=== PATIENT | female | born 1980 | race Caucasian/White ===

== ENCOUNTER → 2020-12-02 12:33 | Outpatient (CLI) | payer OTHER, SELFPAY ==
[2020-12-02 12:50] LABS: Add Manual Diff / Slide Review NO; Basophils Absolute Auto 0 /uL (0-100); Basophils Percent Auto 0.3 % (0-2); Eosinophils Absolute Auto 0 /uL (0-450); Eosinophils Percent Auto 0.6 % (2-4); Hematocrit 38.5 % (36-46); Hemoglobin 13.2 g/dL (12.0-16.0); Lymphocytes Absolute Auto 1900 /uL (1100-4500); Lymphocytes Percent Auto 27.4 % (25-40); Mean Corpuscular HGB Conc 34.3 % (30-36); Mean Corpuscular Hemoglobin 30.9 PG (26-34); Mean Corpuscular Volume 90.2 fL (80-100); Monocytes Absolute Auto 600 /uL (0-900); Monocytes Percent Auto 8.1 % (3-14); Neutrophils Absolute Auto 4300 /uL (1500-7000); Neutrophils Percent Auto 63.6 % (50-75); Platelet Count 343 X10^3/uL (150-400); Red Blood Cell Count 4.26 X10^6/uL (4.0-5.2); Red Cell Distribution Width 13.2 % (11.6-14.8); White Blood Cell Count 6.8 X10^3/uL (4.5-11.0)
[2020-12-02 16:48] LABS: Urine N gonorrhoeae NOT DETECTED
[2020-12-02 16:51] LABS: Urine Chlamydia NOT DETECTED
[2020-12-02 18:51] LABS: Hepatitis B Surface Antigen NEGATIVE s/c (NEGATIVE); Rubella Antibody IgG 3.7 IU/mL (>15)
[2020-12-02 19:00] LABS: HIV 1 & 2 Ab/Ag 4th Gen Combo NEGATIVE (NEGATIVE); Hep C Virus Ab w/Reflex Quant NEGATIVE s/c (NEGATIVE)
[2020-12-03 07:36] LABS: RPR Screen Non Reactive (Non Reactive)
[2020-12-03 08:16] LABS: Varicella IgG Antibody 290 index (Immune >165)
== END ==
PROVIDERS: PCP Family Medicine; Referring Provider Obstetrics & Gynecology; Visit Provider Obstetrics & Gynecology
DX: Z34.81 Encounter for supervision of other normal pregnancy, first trimester (principal); Z11.3 Encounter for screening for infections with a predominantly sexual mode of transmission; Z3A.09 9 weeks gestation of pregnancy
CPT/HCPCS: 36415; 80055; 86787; 86803; 86850; 86900; 86901; 87389; 87491; 87591

== ENCOUNTER → 2021-01-01 08:08 | Outpatient (CLI) | payer OTHER, SELFPAY | PROVIDERS: PCP Family Medicine; Referring Provider Obstetrics & Gynecology; Visit Provider Obstetrics & Gynecology | DX: O09.511 Supervision of elderly primigravida, first trimester (principal); Z36.0 Encounter for antenatal screening for chromosomal anomalies | CPT/HCPCS: 81420; 87086 ==

== ENCOUNTER → 2021-01-27 09:08 | Outpatient (CLI) | payer OTHER, SELFPAY ==
[2021-01-29 20:39] LABS: AFP Value 28.7 ng/mL (.); Gest Age on Col Date 16.9 weeks (.); Insulin Dep Diabetes No (.); OSBR Risk 1IN 10000 (.); Results Report (.); Test Results *Screen Negative* (.)
== END ==
PROVIDERS: PCP Family Medicine; Referring Provider Obstetrics & Gynecology; Visit Provider Obstetrics & Gynecology
DX: Z34.82 Encounter for supervision of other normal pregnancy, second trimester (principal); Z3A.16 16 weeks gestation of pregnancy
CPT/HCPCS: 36415; 82105

== ENCOUNTER → 2021-02-24 08:59 | Outpatient (CLI) | payer OTHER, SELFPAY ==
--- NOTE | 2021-02-24 09:00 | DI.US.S_ITS ---
PROCEDURE: US OB >= 14 WEEKS FETUS INDICATIONS: ANATOMY OUTSIDE/PRIOR DATING DATA: Last menstrual period (LMP): 10/01/2020. LMP-based estimated date of delivery (DELMER): 07/08/2021 . First dating scan (date and location): 12/02/2020, physician's office . Estimated date of delivery (DELMER) from first dating scan: 07/08/2021 . TECHNIQUE: Real-time scanning was performed of the fetus, with image documentation and biometric measurements. COMPARISON: [facility], , OB >= 14 WEEKS FETUS, 01/27/2021, 9:01. FINDINGS: General: A single living intrauterine gestation is present. Presentation: Transverse with head to maternal left, then variable. Placenta: Placental position is anterior, low lying, measuring 1.5 cm from the internal os , without previa. Amniotic fluid index: 12.4 cm, normal range is 5-24 cm. heart rate: 135 beats per minute. Maternal cervical canal: 4.8 cm long. Normal lower limit is 2.5 cm. biometrics: Biparietal diameter: 5.01 cm, 20 weeks 1 day Head circumference: 19.17 cm, 21 weeks 3 days Abdominal circumference: 16.65 cm, 21 weeks 4 days Femur length: 3.65 cm, 21 weeks 4 days Estimated gestational age from initial scan: not applicable. Composite gestational age from present scan: 21 weeks 3 days Estimated weight and percentile: 432 g, 81st percentile Measurement variability for biometric dating: +/- 7 days from 14 weeks to 15 weeks 6 days gestation, +/- 10 days from 16 weeks to 21 weeks 6 days gestation, +/- 2 weeks from 22 weeks to 27 weeks 6 days gestation, +/- 3 weeks for 28 weeks gestation or later. weight reference: 4500 g or EFW >90/95% is considered macrosomia or large for gestational age. EFW <10% is small for gestational age. EFW 5% or less is considered intra-uterine growth restriction. Anatomic survey: Neuro: Ventricles are non-dilated at less than 10 mm. Cisterna magna is normal at 3-11 mm. Cerebellum is normal in size and morphology. Nuchal skin fold: Normal at less than 6 mm between 14-21 weeks gestational age. Face: Nose and lips, facial profile are normal. Spine: No evidence for spina bifida. Heart: 4-chambered heart is present, with normal ventricular outflow tracts. Echogenic focus, left ventricle. Diaphragm: Diaphragm is intact. Stomach: Left-sided stomach is present. Kidneys: No hydronephrosis. Normal is less than 5 mm in 2nd trimester, less than 7 mm in 3rd trimester. Cord: 3-vessel cord has orthotopic insertion. Bladder: Normal in size. Extremities: All 4 extremities identified. IMPRESSION: 1. Living 2nd trimester intrauterine . Ultrasound age is 4 days greater than clinical age based on initial ultrasound. 2. Incidental note made of left ventricular echogenic focus. 3. Low lying placenta, 1.5 cm from the os. 4. Otherwise unremarkable anatomy study. Comment: Consider follow-up limited ultrasound in approximately 4 weeks to document resolution of low lying placenta. Dictated by: Homero Robert M.D. on 02/24/2021 at 14:33 Approved by: Homero Robert M.D. on 02/24/2021 at 14:41
== END ==
PROVIDERS: PCP Family Medicine; Referring Provider Obstetrics & Gynecology; Visit Provider Obstetrics & Gynecology
DX: Z34.82 Encounter for supervision of other normal pregnancy, second trimester (principal); Z3A.21 21 weeks gestation of pregnancy
CPT/HCPCS: 76811

== ENCOUNTER 2021-03-20 14:54 | Outpatient (CLI) | payer OTHER, SELFPAY ==
--- NOTE | 2021-03-20 15:14 | DI.US.S_ITS ---
PROCEDURE: US OB TRANSVAGINAL INDICATIONS: CERVICAL LENGTH OUTSIDE/PRIOR DATING DATA: Last menstrual period (LMP): 10/01/2020 LMP-based estimated date of delivery (DELMER): 07/08/2021. First dating scan (date and location): 11/22/2020, Dr. Kohli office. Estimated date of delivery (DELMER) from first dating scan: 07/08/2021 TECHNIQUE: Real-time scanning was performed of the fetus, with image documentation. Endovaginal scanning: Performed for better visualization COMPARISON: [facility], OB >= 14 WEEKS FETUS, 02/24/2021, 9:21. [facility], , US OB >= 14 WEEKS FETUS, 01/27/2021, 9:01. [facility], OB >= 14 WEEKS FETUS, 12/02/2020, 12:17. FINDINGS: A single live intrauterine gestation is present. Presentation: Transverse. Placenta: Placental position is anterior, without previa. The inferior edge of the placenta is seen 2.2 cm from the internal cervical os. Amniotic fluid index: Not measured heart rate: 133 beats per minute. Maternal cervical canal: 4 cm long. Normal lower limit is 2.5 cm. Estimated gestational age from initial scan: 24 weeks 2 days. IMPRESSION: The cervix measures 4 cm in length. Dictated by: Yosef Moore M.D. on 03/20/2021 at 16:10 Approved by: Yosef Moore M.D. on 03/20/2021 at 16:12
--- NOTE | 2021-03-20 16:47 | P.TNLD_ITS ---
Visit Information Visit Information Date of evaluation: 03/20/21 Primary OB Provider: Bernadine Kohli On-call OB Provider: Yamilet Garcia Reason for Evaluation: Yes rule out labor Comments/Additional reasons for admission: This patient is a 40-year-old para 3 at 24 weeks 2 days with a history of 3 term vaginal deliveries, presenting because she has passed 3 tbsp of dark tented cervical mucus. The patient reports that the mucus was brown, and that she has had several weeks of gently cramping low back pain. The patient denies change in bowel or bladder habits, abdominal contractions, decreased movement, signs of rupture membranes, or any other symptoms. Patient has a history of low-lying placenta and has not been sexually active, that this was found to be resolved on today's ultrasound. Her has been otherwise uncomplicated. Vital Signs Vital Signs: 118/74, heart rate 74 PFSH Medical History Anemia Arrhythmia (~03/2020) Endometriosis (~2002) Low back pain (~2014) (spontaneous vaginal delivery) (~11/07/10) (spontaneous vaginal delivery) (~10/02/13) (spontaneous vaginal delivery) (~04/25/15) UTI (urinary tract infection) Surgical History Anesthesia S/P dilation and curettage (~08/2011) S/P dilation and curettage (~07/2017) S/P dilation and curettage (~07/2017) S/P laparoscopy (~2003) S/P right knee surgery (~2006) Family History Mother Pulmonary emboli Father Cardiac abnormality H/O heart surgery Grandmother Schizophrenia Cancer Grandfather Myocardial infarction Grandmother CVA (cerebral vascular accident) Grandfather Myocardial infarction Social History marital status: number of children: 3 household members: spouse and children pets and animals: Yes (X 2 cats ) education level: college occupational status: unemployed current occupational exposures/hazards: 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) gaston/zoroastrianism: Congregational special gaston needs: No Smoking Status: Never smoker second hand exposure: No alcohol intake: former substance use type: does not use Review of Systems Constitutional Constitutional: Reports system reviewed and no additional complaints, except as documented Cardiovascular Cardiovascular: Reports system reviewed and no additional complaints, except as documented Respiratory Respiratory: Reports system reviewed and no additional complaints, except as documented Gastrointestinal Gastrointestinal: Reports system reviewed and no additional complaints, except as documented Genitourinary Genitourinary: Reports as per HPI Exam Const General: cooperative, healthy appearing and comfortable GI Palpation: soft and No tender External Female Exam: normal external appearance Speculum Exam - Vagina: normal appearance of the vagina, normal vaginal discharge (Speculum exam performed by nurse overnight houseperson as OB scrubbed at time of arrival), no lesions and No vaginal bleeding Speculum Exam - Cervix: normal appearance of the cervix OB/External & Speculum: No vaginal bleeding Other: Transvaginal ultrasound performed. Cervix noted to be closed and long, 4 cm without funneling. Of note, low-lying placenta has resolved, distance 2.2 cm from os. Evaluation Evaluation Baseline heart rate: 130 Variability: Moderate (11-25) monitor accelerations: Absent (Age-appropriate) Monitor Decelerations: Absent Contraction Frequency (minutes): 0 Status: Category l Comments: No contractions on toco Diagnosis, Plan/Disposition Plan/Disposition Plan: This patient has a history of chronic low back pain, and presents for evaluation for possible vaginal bleeding and contractions. No contractions visualized on toco, the patient is co mucus was noted to be normal physiologic off-white, and the cervix was long and closed. Patient is otherwise well- appearing, and her low-lying placenta has resolved. Precautions for return were discussed, the patient was discharged home. OB Disposition: home
[2021-03-20 16:56] LABS: Bacteria Urine None Seen; RBC Urine None Seen (0-5/HPF)
[2021-03-20 17:07] LABS: Appearance Urine UA CLEAR; Bilirubin Urine UA NEGATIVE (NEGATIVE); Color Urine UA YELLOW; Glucose Urine UA NEGATIVE (Negative); Ketones Urine UA NEGATIVE (NEGATIVE); Leukocyte Esterase Urine UA NEGATIVE (NEGATIVE); Nitrite Urine UA NEGATIVE (Negative); Occult Blood Urine UA NEGATIVE (Negative); Protein Urine UA NEGATIVE (Negative); Urobilinogen Urine UA 0.2 E.U./dL (0.2)
[2021-03-20 17:13] LABS: Culture Indicated Urine Cult Not Indicated; Squamous Epithelial Cell Urine 1-5 /HPF (0-5/HPF); WBC Urine 0-1/HPF (0-5/HPF)
== END 2021-03-20 16:50 | disposition home or self-care (01) ==
LOC: LABOR 17:13 → OB 03-24 06:50
PROVIDERS: Obstetrics & Gynecology; PCP Family Medicine; Referring Provider Obstetrics & Gynecology; Visit Provider Obstetrics & Gynecology
DX: O26.892 Other specified pregnancy related conditions, second trimester (principal); N89.8 Other specified noninflammatory disorders of vagina; M54.5 Low back pain; Z3A.24 24 weeks gestation of pregnancy
CPT/HCPCS: 59025; 76817; 81001; G0378; G0379

== ENCOUNTER → 2021-04-21 10:02 | Outpatient (CLI) | payer OTHER, SELFPAY ==
[2021-04-21 12:22] LABS: Hematocrit 32.4 % (36-46); Hemoglobin 10.9 g/dL (12.0-16.0)
[2021-04-21 12:46] LABS: GTT (PREG) 1 Hour PP 50gm Dose 122 mg/dL (76-139)
== END ==
PROVIDERS: PCP Family Medicine; Referring Provider Obstetrics & Gynecology; Visit Provider Obstetrics & Gynecology
DX: Z34.82 Encounter for supervision of other normal pregnancy, second trimester (principal); Z3A.26 26 weeks gestation of pregnancy
CPT/HCPCS: 36415; 82950; 85014; 85018

== ENCOUNTER → 2021-06-12 16:55 | Outpatient (CLI) | payer OTHER, SELFPAY ==
[2021-06-13 13:06] LABS: Strep Grp B PCR NEG for Grp B Strep
== END ==
PROVIDERS: PCP Family Medicine; Visit Provider Obstetrics & Gynecology
DX: Z34.83 Encounter for supervision of other normal pregnancy, third trimester (principal); Z3A.36 36 weeks gestation of pregnancy
CPT/HCPCS: 87653

== ENCOUNTER 2021-06-20 12:04 | Outpatient (CLI) | payer OTHER, SELFPAY ==
[2021-06-20 14:13] LABS: Appearance Urine UA CLEAR; Bilirubin Urine UA NEGATIVE (NEGATIVE); Color Urine UA YELLOW; Glucose Urine UA NEGATIVE (Negative); Ketones Urine UA NEGATIVE (NEGATIVE); Leukocyte Esterase Urine UA NEGATIVE (NEGATIVE); Nitrite Urine UA NEGATIVE (Negative); Occult Blood Urine UA NEGATIVE (Negative); Protein Urine UA NEGATIVE (Negative); Urobilinogen Urine UA 0.2 E.U./dL (0.2)
== END 2021-06-20 13:07 | disposition home or self-care (01) ==
LOC: LABOR 12:07 → OB 06-23 09:48
PROVIDERS: PCP Family Medicine; Referring Provider Obstetrics & Gynecology; Visit Provider Obstetrics & Gynecology
DX: O32.1XX0 Maternal care for breech presentation, not applicable or unspecified (principal); O09.523 Supervision of elderly multigravida, third trimester; Z3A.37 37 weeks gestation of pregnancy
CPT/HCPCS: 59025; 76815; 81003; G0378; G0379

== ENCOUNTER 2021-06-26 12:32 | Outpatient (CLI) | payer OTHER, SELFPAY ==
--- NOTE | 2021-06-26 13:05 | PM.OBTRLD ---
Visit Information Visit Information Date of evaluation: 06/26/21 Primary OB Provider: Bernadine Kohli On-call OB Provider: Kerry Butcher Reason for Evaluation: Yes rule out labor Comments/Additional reasons for admission: 41YO @ [id number]. Has been feeling mild contractions for a few days, then stronger contractions for a few hours this morning. She called the clinic and was told to come in for evaluation. Contractions have since subsided and she is unaware of any contractions at this time. +FM. No vaginal bleeding or LOF. care w/ . Vital Signs Vital Signs: BP 116/68, HR 86bpm, RR 16/min, T 96.7F Temporal PFS Medical History Anemia Arrhythmia (~03/2020) Endometriosis (~2002) Low back pain (~2014) (spontaneous vaginal delivery) (~11/07/10) (spontaneous vaginal delivery) (~10/02/13) (spontaneous vaginal delivery) (~04/25/15) UTI (urinary tract infection) Surgical History Anesthesia S/P dilation and curettage (~08/2011) S/P dilation and curettage (~07/2017) S/P dilation and curettage (~07/2017) S/P laparoscopy (~2003) S/P right knee surgery (~2006) Family History Mother Pulmonary emboli Father Cardiac abnormality H/O heart surgery Grandmother Schizophrenia Cancer Grandfather Myocardial infarction Grandmother CVA (cerebral vascular accident) Grandfather Myocardial infarction Social History marital status: number of children: 3 household members: spouse and children pets and animals: Yes (X 2 cats ) education level: college occupational status: unemployed current occupational exposures/hazards: 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 special gaston needs: No Smoking Status: Never smoker second hand exposure: No alcohol intake: former substance use type: does not use Review of Systems Review of Systems ROS: Yes All systems reviewed with the patient and are negative except as otherwise documented Exam Vital Signs (past 8 hours): See above Presentation: vertex Evaluation Evaluation Baseline heart rate: 125 Variability: Moderate (11-25) monitor accelerations: Present Monitor Decelerations: Absent Contraction Frequency (minutes): 5 Category of Tracing: Reactive Cervical dilation (cm): 1 Cervical effacement (%): 50 station: -2 Diagnosis, Plan/Disposition Final Diagnosis (1) False labor after 37 completed weeks of gestation: Status: Acute Plan/Disposition Plan: Discharge to home with routine precautions. Follow-up with as previously scheduled.
== END 2021-06-26 13:20 | disposition home or self-care (01) ==
LOC: LABOR 13:51 → OB 06-27 08:44
PROVIDERS: PCP Family Medicine; Referring Provider Obstetrics & Gynecology; Visit Provider Obstetrics & Gynecology
DX: O47.1 False labor at or after 37 completed weeks of gestation (principal); Z3A.38 38 weeks gestation of pregnancy
CPT/HCPCS: 59025; G0378; G0379

== ENCOUNTER 2021-06-27 17:39 | Inpatient (IN) | payer OTHER, SELFPAY ==
[2021-06-27 18:07] VITALS: BP 121/71
[2021-06-27 19:50] LABS: COVID19 - ADMIT (NP swab/PCR) Negative (Negative)
[2021-06-27] MEDS: OXYTOCIN PREMIX 30 UNIT/500 ML PLAST..BAG IV (19:50)
[2021-06-27] MEDS: LACTATED RINGERS 1,000 ML 100 ML IV (20:00)
[2021-06-27 20:17] LABS: Add Manual Diff / Slide Review NO; Basophils Absolute Auto 0 /uL (0-100); Basophils Percent Auto 0.4 % (0-2); Eosinophils Absolute Auto 100 /uL (0-450); Eosinophils Percent Auto 0.7 % (2-4); Hematocrit 31.3 % (36-46); Hemoglobin 10.2 g/dL (12.0-16.0); Lymphocytes Absolute Auto 1800 /uL (1100-4500); Lymphocytes Percent Auto 24.2 % (25-40); Mean Corpuscular HGB Conc 32.7 % (30-36); Mean Corpuscular Hemoglobin 25.5 PG (26-34); Mean Corpuscular Volume 78.2 fL (80-100); Monocytes Absolute Auto 800 /uL (0-900); Monocytes Percent Auto 10.9 % (3-14); Neutrophils Absolute Auto 4900 /uL (1500-7000); Neutrophils Percent Auto 63.8 % (50-75); Platelet Count 380 X10^3/uL (150-400); Red Cell Distribution Width 15.6 % (11.6-14.8); White Blood Cell Count 7.6 X10^3/uL (4.5-11.0)
--- NOTE | 2021-06-27 21:25 | P.PCN_ITS ---
Regional Block Pre-procedure Procedure: Continuous Lumbar Epidural for L&D Attending OB provider: Bernadine Kohli PMH/ROS narrative: term labor, no complications. ASA Class: II Labs: Hct 31.3 % (36-46) L 06/27/21 19:40 Plt Count 380 X10^3/uL (150-400) 06/27/21 19:40 Medications: Current Medications Generic Name Dose Route Start Last Admin Trade Name Freq PRN Reason Stop Dose Admin Calcium Carbonate 500 mg 06/27/21 18:46 Calcium Carbonate 500 Mg Tab PO Q2HR PRN Dyspepsia Carboprost Tromethamine 250 mcg 06/27/21 18:46 Carboprost 250 Mcg/Ml Ampul IM Q90M PRN Bleeding Diphenhydramine HCl 25 mg 06/27/21 21:15 Diphenhydramine 50 Mg/Ml Vial IV Q10M PRN Pruritis Fentanyl 50 mcg 06/27/21 18:46 Fentanyl 100 Mcg/2 Ml Inj IV Q1H PRN Pain, Moderate (4-6) Lactated Ringer's 1,000 mls @ 100 mls/hr 06/27/21 19:00 06/27/21 20:00 Lactated Ringers IV 100 mls/hr CONT TACO Administration Tranexamic Acid 1,000 mg/ 100 mls @ 200 mls/hr 06/27/21 18:46 Sodium Chloride IV NOW PRN Bleeding Oxytocin/Lactated Ringer's 30 unit in 500 mls @ 3 mls/hr 06/27/21 19:00 06/27/21 19:50 Oxytocin Premix IV 3 milliunit/min TITRATE TACO 3 mls/hr Administration Protocol 3 MILLIUNIT/MIN FENT 2MCG/ML BUPIV 0.125% EPI 200 mcg in 100 mls @ 6 mls/hr 06/27/21 21:15 Fentanyl/Bupiv/Ns 2mcg/Ml - 0.125% EPIDURAL CONT TACO Methylergonovine Maleate 0.2 mg 06/27/21 18:46 Methylergonovine 0.2 Mg Tablet PO Q6HR PRN Heavy Bleeding Methylergonovine Maleate 0.2 mg 06/27/21 18:46 Methylergonovine 0.2 Mg/Ml Vial IM NOW PRN Bleeding Metoclopramide HCl 10 mg 06/27/21 18:46 Metoclopramide 10 Mg/2 Ml Inj IV NOW PRN Nausea And Vomiting Misoprostol 800 mcg 06/27/21 18:46 Misoprostol 200 Mcg Tablet MN NOW PRN Bleeding Misoprostol 1,000 mcg 06/27/21 18:46 Misoprostol 200 Mcg Tablet MN NOW PRN Bleeding Misoprostol 400 mcg 06/27/21 18:46 Misoprostol 200 Mcg Tablet SL NOW PRN Bleeding Nalbuphine HCl 2.5 mg 06/27/21 21:15 Nalbuphine 20 Mg/Ml Ampul IV Q10M PRN Pruritis Naloxone HCl 0.2 mg 06/27/21 18:46 Naloxone 0.4 Mg/Ml Vial IV Q2MIN PRN Opiate Reversal Ondansetron HCl 4 mg 06/27/21 18:46 Ondansetron 4 Mg/2 Ml Inj IV Q4HR PRN Nausea And Vomiting Oxytocin 10 unit 06/27/21 18:46 Oxytocin 10 Unit/Ml Vial IM NOW PRN Bleeding Allergies: Allergies Allergy/AdvReac Type Severity Reaction Status Date / Time No Known Drug Allergies Allergy Verified 06/27/21 18:15 Procedure Insertion date: 06/27/21 Insertion time: 21:05 Prep/Local: betadine x3 Interspace: L2-3 Needle: 18 gauge AbCelex Technologiestead (CSE: 27g Pencan through Hustead, clear CSF, 1mL 0.25% bupiv) Loss of resistance with: saline THERESA at (cm): 5 Catheter placed at SKIN (cm): 10 Catheter in SPACE (cm): 5 Insertion: No CSF, No Blood, No Paresthesia with insertion, No Paresthesia with injection and No Test dose reaction Initial Medications TEST DOSE time: 21:10 TEST DOSE: 1.5% lidocaine with epinephrine 1:200k (mL): 3 BOLUS DOSE time: 21:25 BOLUS DOSE (mL): 3 BOLUS DOSE med: other (infusate) Infusion INFUSION: 0.125% bupivacaine and with fentanyl 2 mcg/mL Initial rate (mL/hr): 8 Subsequent interventions: 04:30 - 5mL 0.25% bupiv and 50mcg fentanyl 04:40 - 5mL 2% chloroprocaine 04:54 - 5mL 2% chloroprocaine and 50mcg fentanyl 0530 to OR, STAT CS, GETA Post-procedure Anesthesia time START: 21:00 Anesthesia time END: 05:35 Post-procedure Anesthesia Assessment: Yes CV function: HR/BP stable, Yes Resp function: RR/sat/airway adequate, Yes Mental status appropriate and No Anesthesia complications
[2021-06-28] MEDS: FENT 2MCG/ML BUPIV 0.125% EPI 200 MCG/100 ML PLAST..BAG 8 MCG EPIDURAL (04:18)
[2021-06-28] MEDS: LACTATED RINGERS 1,000 ML 100 ML IV ×2 (04:18→06:35)
[2021-06-28] MEDS: CEFAZOLIN 1 GM VIAL IV ×2 (05:43→11:58)
[2021-06-28] MEDS: OXYTOCIN 10 UNIT/ML VIAL IM (05:45)
--- NOTE | 2021-06-28 06:23 | SUR.OPER ---
Supine on Padded OR bed, head on pillow, safety belt at thigh, arms secured on padded arm boards at <90 degrees abduction. Bump under right buttock. Legs uncrossed with pillow under knees, gel pad to heels, tape over blanket to lower legs.
[2021-06-28 06:39] VITALS: BP 104/69; PULSE 97; RESP 16; TEMP 36.2; O2SAT 98
--- NOTE | 2021-06-28 06:43 | SUR.OPER ---
TOB 5:45 AM ALIVE BOY CORD BLOOD X 2 AND PLACENTA GIVEN TO OB NURSE
[2021-06-28 06:44] VITALS: BP 109/63; PULSE 84; RESP 14; O2SAT 95
--- NOTE | 2021-06-28 06:48 | PM.OBHP.1 ---
OB HPI Date/Time Date of admission: 06/27/21 Date Patient Seen: 06/27/21 Time Patient Seen: 20:35 History of Present Condition Chief complaint: : 6 Para: 3 Estimated Date of Delivery: 07/08/21 Estimated Gestational Age (weeks): 38+4 Narrative: Juhi Gutiérrez is a 41 year old female 6 para 3 at 38-,4/7 weeks gestation who presented to the office with mild contractions and dilated to 3 cm. This is her fourth baby and she lives on [address]. A decision was made to augment labor. History of Present care: good care, initiated at week # (8), number of visits (10) and pounds weight gain (39) Dating criteria: LMP confirmed by 1st trimester US Ultrasounds: normal 1st trimester US and abnormal US findings (echogenic focus in heart --- resolved) Obstetrical complications: none Medical complications: none Preadmission Labs Blood type: A (+) positive -: Antibody screen: negative, GBS status: negative, HBsAG: negative, HIV: negative and RPR/VDLR: negative -: Chlamydia screen: not detected and Gonorrhea screen: not detected -: Rubella: not immune and Varicella: immune HCT: 31.3 HCAB: negative PAP: Normal Cell-free DNA: Normal male Urine: Negative 1 hr GTT: 122 Prior (ies) History: 3 2 SAB Evaluation Evaluation Baseline heart rate: 135 Variability: Moderate (11-25) monitor accelerations: Present Monitor Decelerations: Absent Contraction Frequency (minutes): 3 Uterine Contraction Intensity: Moderate Status: Category l Cervical dilation (cm): 4 Cervical effacement (%): 85 station: -1 [facility] Medical History Anemia Arrhythmia (~03/2020) Endometriosis (~2002) Low back pain (~2014) (spontaneous vaginal delivery) (~11/07/10) (spontaneous vaginal delivery) (~10/02/13) (spontaneous vaginal delivery) (~04/25/15) UTI (urinary tract infection) Surgical History Anesthesia S/P dilation and curettage (~08/2011) S/P dilation and curettage (~07/2017) S/P dilation and curettage (~07/2017) S/P laparoscopy (~2003) S/P right knee surgery (~2006) Family History Mother Pulmonary emboli Father Cardiac abnormality H/O heart surgery Grandmother Schizophrenia Cancer Grandfather Myocardial infarction Grandmother CVA (cerebral vascular accident) Grandfather Myocardial infarction Social History marital status: number of children: 3 household members: spouse and children pets and animals: Yes (X 2 cats ) education level: college occupational status: unemployed current occupational exposures/hazards: 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) gaston/episcopalian: Episcopalian special gaston needs: No Smoking Status: Never smoker second hand exposure: No alcohol intake: former substance use type: does not use Meds Home Medications and Allergies Home Medications Medication Instructions Recorded Confirmed Type doxylamine succinate 25 mg tablet 25 mg PO BEDTIME PRN 11/27/20 06/12/21 History (Unisom (doxylamine)) prenat.vits,carolyn,aem-wkyf-rstoh 1 tab PO DAILY 11/27/20 06/12/21 History pyridoxine (vitamin B6) 25 mg 25 mg PO DAILY 11/27/20 06/12/21 History tablet ondansetron 4 mg disintegrating 4 mg PO Q6H PRN #20 tab 12/02/20 06/12/21 Rx tablet amoxicillin 500 mg capsule 500 mg PO TID #21 cap 01/01/21 06/12/21 Rx oxycodone 5 mg tablet 5 mg PO Q4H PRN #14 tab 01/01/21 06/12/21 Rx esomeprazole magnesium 40 mg 40 mg PO DAILY #30 cap 03/05/21 06/12/21 Rx capsule,delayed release (Nexium) Allergies Allergy/AdvReac Type Severity Reaction Status Date / Time No Known Drug Allergies Allergy Verified 06/27/21 18:15 Exam Narrative Exam Narrative: Generally: Patient is sitting up in bed, no acute distress Lungs: Clear to auscultation bilaterally Cardiovascular: Regular rate and rhythm Fundal height: 38 cm Estimated weight: 7-1/2 lb Extremities: No edema Objective Labs Result Diagrams: 06/27/21 19:40 Labs: Laboratory Results - last 24 hr 06/27/21 06/27/21 06/27/21 18:25 19:40 19:40 WBC 7.6 RBC 4.00 Hgb 10.2 L Hct 31.3 L MCV 78.2 L MCH 25.5 L MCHC 32.7 RDW 15.6 H Plt Count 380 Neut % (Auto) 63.8 Lymph % (Auto) 24.2 L [place] % (Auto) 10.9 Eos % (Auto) 0.7 L Baso % (Auto) 0.4 Neut # (Auto) 4900 Lymph # (Auto) 1800 [place] # (Auto) 800 Eos # (Auto) 100 Baso # (Auto) 0 SARS-CoV-2 (PCR) Negative Blood Type A Positive Antibody Screen Negative Assessment and Plan Assessment and Plan Assessment and Plan narrative: Assessment: 41-year-old 6 para 3 at 38-,4/7 weeks gestation with advanced cervical dilation, multi gravid, and lives on [address] in early labor Plan: Pitocin augmentation of labor Artificial rupture of membranes with copious clear amniotic fluid Expected management to spontaneous vaginal delivery Time Spent with Patient Total time spent with greater than 50% in coordination of care (as documented) at patient's floor/unit and/or counseling patient:: 15-24 minutes
[2021-06-28 06:49] VITALS: BP 115/68; PULSE 89; RESP 15; O2SAT 96
--- NOTE | 2021-06-28 06:53 | SUR.OPER ---
STAT WAS PERFORMED; SURGICAL AND ANESTHESIA CONSENTS WERE OBTAINED VERBALLY
[2021-06-28 06:54] VITALS: BP 106/69; PULSE 90; RESP 14; O2SAT 97
--- NOTE | 2021-06-28 06:55 | PM.EVENT ---
Event Note Date Patient Seen: 06/28/21 Time Patient Seen: 05:50 Event Note: Called urgently to the center for prolonged decelerations. Pitocin at 6 marcin IU per minute prior to being turned off by RN when deceleration started. Patient comfortable with epidural. Patient on hands and knees with oxygen on per face mask. A review of the heart rate tracing showed a baseline heart rate in the 120s to 130s. There were deep variable decelerations with each contraction, down to the lowest 80s. The head was lifted out of the pelvis with patient still on her hands and knees. Terbutaline 0.25 mg subcu given. Patient was placed on her back and an attempted vacuum extraction failed. Patient was paced back on her hands and knees. With a recheck of the cervix there was a small loop of cord that could be felt at the side of the head. This was pushed back up into the pelvis while holding the head out of the pelvis. An RN took over with lifting of the head as we transported the patient to the operating room to perform an emergent section.
[2021-06-28] MEDS: OXYCODONE IR 5 MG TABLET 10 MG PO (06:56)
--- NOTE | 2021-06-28 06:58 | PM.PREOP ---
Pre-operative Note COVID-19 COVID-19 status: Negative Result date/Date tested (Pos, Neg/Pending): 06/27/21 Interval Note History & Physical reviewed/Exam performed by Physician: Yes Changes to H&P: No H&P completed within 30 days and has changed as indicated here:: 06/28/21
--- NOTE | 2021-06-28 06:59 | P.OP_ITS ---
Operative Date/Time/Diagnoses Date of procedure: 06/28/21 Time of procedure: 06:59 Pre-op diagnosis: intolerance of labor Post-op diagnosis: same Procedure & Clinicians Procedure: Emergent primary low-transverse section Same procedure as scheduled: Yes Indications: intolerance of labor Surgeon: Bernadine Ricci Yes if Unassisted: No Cloth Opener Hand: Fabricio Moreno Reason for Cloth Opener Hand: The home health assistant was responsible for retraction and cutting of suture. They assisted in delivery of the infant. They assisted with retraction and cutting of suture on closing the abdomen. They close the contralateral fascia. Anesthesia Type: General and Epidural Operative Notes Findings: Live male in the L OT presentation No nuchal cord Normal uterus, tubes, and ovaries Closure Type: primary Specimen(s): cord blood, cord pH and placenta Intraoperative meds administered: Duramorph, Ketorolac and Pitocin (20 units IV, 5 units injected into the fundus of the uterus) Applied: Catheter (To continuous drainage) Estimated Blood Loss (mL): 700 Blood products transfused: none Procedure in detail: The patient was taken to the operating room where she was placed in the dorsal supine position with a leftward tilt. She was prepped and draped in the usual sterile fashion. A timeout was performed. Epidural analgesia was found to be in adequate and the patient was placed under general anesthesia. A Pfannenstiel skin incision was made and carried through to the underlying layer of fascia. The fascia was nicked in the midline, and the incision extended bilaterally with the Lee scissors. The superior aspect of the fascial incision was grasped with a Darlin clamps, elevated, and the underlying rectus muscles dissected off sharply and bluntly. Attention was then turned to the inferior aspect of this incision which in a similar fashion was grasped with a Darlin clamps, elevated, and the underlying rectus muscles dissected off sharply and bluntly. The rectus muscles were in the midline. The peritoneum was identified, grasped between 2 hemostats, and entered sharply with the Metzenbaum scissors. This incision was extended superiorly and inferiorly with good visualization of the bladder. The bladder blade was inserted. The vesicouterine peritoneum was identified, grasped with the pickup, and entered sharply with the Metzenbaum scissors. This incision was extended bilaterally, and the bladder flap was created digitally. The bladder blade was reinserted. The lower uterine segment was incised in a transverse fashion with the scalpel. Upon entering the amniotic sac there was a small amount of clear amniotic fluid. The infant's head was delivered without difficulty. There was found to be a piece of cord down near the head. The nose and mouth were suctioned with bulb suction. The remainder of the body delivered without difficulty. The cord was double clamped and cut. The infant was handed off to waiting RN, RT, and Peds. The placenta was delivered manually. The uterus was cleared of all clots and debris. The uterine incision was repaired with #1 chromic in a running interlocking fashion, and a second layer the same suture was used for an imbricating layer. The stasis was achieved. The tubes and ovaries were examined and were found to be normal. The gutters were cleared of all clots and debris. The bladder flap was reapproximated using 2-0 Vicryl in a running fashion. The parietal peritoneum was closed using 2-0 Vicryl in a running fashion. The fascia was reapproximated using 0 Vicryl in a running fashion. Subcutaneous layer was copiously irrigated with warm normal saline. 5 simple interrupted sutures of 3-0 Vicryl were placed to reapproximate the sub cutaneous layer. The skin was closed with 4-0 Biosyn in a subcuticular fashion. Steri-Strips were placed. An Aquacel dressing was placed. The uterus was expressed of a small amount of old blood. Sponge, lap, and instrument counts were correct x-2. The patient tolerated the procedure well, and was taken to PACU in stable condition. Complications: none Baby 1: Infant Gender: Male Presentation: vertex Position: Left Occiput Transverse Placental Delivery Description: Manual Removal Cord Vessel Description: 3 Vessels score (1 min): 8 score (5 min): 9 weight: 7 lb 9 oz Post-operative Condition: stable Disposition: PACU Aftercare: routine postop
[2021-06-28 07:04] VITALS: BP 116/75; PULSE 78; RESP 15; O2SAT 95
[2021-06-28 07:16] VITALS: BP 109/60; PULSE 70; RESP 16; TEMP 37.4; O2SAT 97
--- NOTE | 2021-06-28 07:30 | SUR.PHASEI ---
REPORT GIVEN TO FRAN. ROLON. ALL QUESTIONS ANSWERED TO SATISFACTION. PATIENT TRANSF TO OB IN STABLE CONDITION. FACE TO FACE HANDOFF AT BEDSIDE WITH FUNDUS CHECK, VS CHECK, CALL LIGHT, SCD'S ON AND BED LOCKED IN LOW POSITION.
[2021-06-28] MEDS: OXYCODONE IR 5 MG TABLET PO ×4 (11:55→22:05)
[2021-06-28] MEDS: ACETAMINOPHEN 325 MG TABLET 650 MG PO ×2 (11:57→19:00)
[2021-06-28] MEDS: KETOROLAC 30 MG/ML VIAL IV (13:31)
[2021-06-29] MEDS: LACTATED RINGERS 1,000 ML 100 ML IV (00:39)
[2021-06-29] MEDS: CEFAZOLIN 1 GM VIAL IV ×2 (00:40→08:18)
[2021-06-29] MEDS: OXYCODONE IR 5 MG TABLET PO ×4 (00:42→23:26)
[2021-06-29] MEDS: ACETAMINOPHEN 325 MG TABLET 650 MG PO ×4 (00:43→23:25)
[2021-06-29] MEDS: KETOROLAC 30 MG/ML VIAL IV (00:44)
[2021-06-29] MEDS: OXYCODONE IR 5 MG TABLET 10 MG PO (04:32)
[2021-06-29] MEDS: IBUPROFEN 600 MG TABLET PO ×3 (08:19→23:26)
[2021-06-29 08:27] LABS: Hematocrit 19.2 % (36-46); Hemoglobin 6.1 g/dL (12.0-16.0)
--- NOTE | 2021-06-29 12:19 | P.PNOB_ITS ---
Subjective - OB Subjective Patient comments: incisional pain, tolerating diet and flatus present baby status: doing well and nursing well (had frenotomy earlier today) [place] feeding status: exclusively breast feeding Narrative: Post section day 1. Patient has been up and urinated post removal of her Bernstein. She is passing gas. She was quite dizzy when she got up and only lasted about 10 minutes sitting in the chair due to the pain. She denies headaches, scotomata, epigastric pain. Date Patient Seen: 06/29/21 Time Patient Seen: 12:20 Exam Vital Signs (past 8 hours): Blood pressure 100/56, pulse of 81, temperature 98.4? Oxygen Delivery Method Room Air Oxygen Flow Rate 0 Narrative Exam Narrative: Patient's abdomen is soft with tenderness but no rebound. Uterus is firm, at U, appropriately tender. Dressing is clean, dry, intact. Mild lochia. Extremities with trace edema and nontender. Objective Labs Result Diagrams: 06/29/21 07:45 Labs: Laboratory Results - last 24 hr 06/29/21 07:45 Hgb 6.1 L* Hct 19.2 L* Assessment & Plan Assessment and Plan (1) Delivery by section: Problem details: distress from cord prolapse Status: Acute (2) Acute blood loss anemia: Status: Acute Plan day: 1 plan OB: routine postop care Comments: Discussed with patient options for treating her low blood count. Blood transfusion, IV iron therapy, oral therapy. Patient will see how she feels throughout the day before decision for blood transfusion. Will give IV iron therapy. Time Spent With Patient Time: Total time spent is greater than 50% in coordination of care (as documented) at patient's floor/unit and/or counseling patient: Time with patient: less than 15 minutes
[2021-06-29] MEDS: IRON SUCROSE 100 MG in SODIUM CHLORIDE 0.9% 100 ML 420 ML IV (16:05)
[2021-06-29 21:28] LABS: Add Manual Diff / Slide Review NO; Basophils Absolute Auto 0 /uL (0-100); Basophils Percent Auto 0.2 % (0-2); Eosinophils Absolute Auto 100 /uL (0-450); Eosinophils Percent Auto 1.1 % (2-4); Lymphocytes Absolute Auto 1900 /uL (1100-4500); Lymphocytes Percent Auto 22.7 % (25-40); Mean Corpuscular HGB Conc 32.5 % (30-36); Mean Corpuscular Hemoglobin 25.7 PG (26-34); Monocytes Absolute Auto 700 /uL (0-900); Monocytes Percent Auto 8.7 % (3-14); Neutrophils Absolute Auto 5700 /uL (1500-7000); Neutrophils Percent Auto 67.3 % (50-75); Platelet Count 291 X10^3/uL (150-400); Red Cell Distribution Width 15.8 % (11.6-14.8); White Blood Cell Count 8.5 X10^3/uL (4.5-11.0)
[2021-06-29 21:35] LABS: Hematocrit 19.7 % (36-46); Hemoglobin 6.4 g/dL (12.0-16.0)
--- NOTE | 2021-06-29 22:21 | PM.OBPN.1 ---
Subjective - OB Subjective Patient comments: other (Patient with significant syncopal episode when she tried to get up from the bed.) baby status: doing well and nursing well [place] feeding status: exclusively breast feeding Date Patient Seen: 06/29/21 Time Patient Seen: 22:21 Interval history: Patient with stable but low H&H initially tried IV iron but had a significant syncopal episode. Discussed pros and cons of blood and the patient has decided she will proceed with blood transfusion. Exam Vital Signs (past 8 hours): Blood pressure 121/74, pulse of 88, temperature 90? Oxygen Delivery Method Room Air Oxygen Flow Rate 0 Narrative Exam Narrative: Abdomen is soft, mildly tender. Uterus is firm, at U, mildly tender. Dressing is clean, dry, intact. Mild lochia. Extremities with trace edema and nontender. Objective Labs Result Diagrams: 06/29/21 21:17 Labs: Laboratory Results - last 24 hr 06/27/21 06/29/21 06/29/21 19:40 07:45 21:17 WBC 8.5 RBC 2.50 L Hgb 6.1 L* 6.4 L* Hct 19.2 L* 19.7 L* MCV 79.0 L MCH 25.7 L MCHC 32.5 RDW 15.8 H Plt Count 291 Neut % (Auto) 67.3 Lymph % (Auto) 22.7 L [place] % (Auto) 8.7 Eos % (Auto) 1.1 L Baso % (Auto) 0.2 Neut # (Auto) 5700 Lymph # (Auto) 1900 [place] # (Auto) 700 Eos # (Auto) 100 Baso # (Auto) 0 Blood Type A Positive Antibody Screen Negative Crossmatch See Detail Assessment & Plan Assessment and Plan (1) Delivery by section: Problem details: distress from cord prolapse Status: Acute (2) Acute blood loss anemia: Status: Acute Plan day: 1 Comments: Patient has become symptomatic from her low blood count. Decision was made to transfuse 2 units of packed red blood cells. Risks and benefits were discussed with the patient. Time Spent With Patient Time: Total time spent is greater than 50% in coordination of care (as documented) at patient's floor/unit and/or counseling patient: Time with patient: less than 15 minutes
[2021-06-30 06:32] LABS: Mean Corpuscular HGB Conc 32.7 % (30-36); Mean Corpuscular Hemoglobin 25.9 PG (26-34); Mean Corpuscular Volume 79.4 fL (80-100); Platelet Count 265 X10^3/uL (150-400); Red Blood Cell Count 2.25 X10^6/uL (4.0-5.2); White Blood Cell Count 7.8 X10^3/uL (4.5-11.0)
[2021-06-30 06:38] LABS: Hemoglobin 5.8 g/dL (12.0-16.0)
[2021-06-30 06:39] LABS: Hematocrit 17.9 % (36-46)
[2021-06-30] MEDS: IBUPROFEN 600 MG TABLET PO ×2 (09:27→16:33)
[2021-06-30] MEDS: DOCUSATE 100 MG CAPSULE PO (09:27)
[2021-06-30] MEDS: ACETAMINOPHEN 325 MG TABLET 650 MG PO ×2 (09:27→16:33)
[2021-06-30 19:02] VITALS: BP 109/60; PULSE 70; RESP 16; TEMP 37.4
--- NOTE | 2021-07-10 07:59 | P.DS_ITS ---
Discharge Providers Provider Date of admission: 06/27/21 17:39 Discharge Date: 06/30/21 Primary care physician: Ziggy Tomlin MD Consults: 06/28/21 09:34 Consult to Motor Vehicle Assembler Routine Comment: Discharge provider: Bernadine Kohli MD Summary Hospital Course Date Patient Seen: 06/30/21 Time Patient Seen: 08:00 Diagnoses: Emergent section Estimated gestational age of 39 weeks Blood loss anemia Hospital Course: Patient is a 41-year-old 4 para 4 who presented on June 28, 2021 for an induction due to advanced cervical dilation and living on [place]. She was started on Pitocin. Artificial rupture membranes was performed. She progressed to the 7-8 cm. There was then intolerance of labor and an emergency section was performed. There was 700 cc of blood loss. On postop day # 1 patient had a hemorrhage. Her hematocrit dropped to 19. Patient refused blood transfusion. She received an iron infusion. She was discharged home on postop day # 2. Peripartum Data Infant Delivery Method: Emergency Section Laceration Description: None Episiotomy description: None Procedures: Induction of labor with Pitocin Artificial rupture of membranes Emergency section Iron infusion complications: other ( hemorrhage) 1: Gender: Male Disposition of : home Discharge Diagnosis (1) Delivery by section: Status: Acute Problem Details: distress from cord prolapse (2) Acute blood loss anemia: Status: Acute Status at Discharge Cognitive/behavioral status at discharge: oriented Functional status at discharge: independent ambulation Overall status at discharge: patient is progressing back to baseline Time Spent with Patient Time attestation: Total time spent providing and/or coordinating discharge services: Time spent: Less than 30 minutes Objective Labs Result Diagrams: 06/30/21 05:45 Exam Vital Signs (past 8 hours): Oxygen Delivery Method Room Air Oxygen Flow Rate 0 Narrative Exam Narrative: Generally: Patient sitting up in bed, no acute distress Lungs: Clear to auscultation bilaterally Cardiovascular: Regular rate and rhythm Fundus: Firm at U -1 Incision: Clean dry and intact with Aquacel dressing Extremities: Negative Homans, no edema Discharge Plan Discharge Plan Patient Disposition: Home Provider Discharge Comment: Call with fever, chills, or redness or drainage around the incision, or bleeding vaginally more than a pad in an hour Ibuprofen 600 mg every 6 hours Tylenol 650 mg every 6 hours Slow Fe daily Colace 100 mg once or twice a day Discharge orders & Medications Prescriptions: New oxycodone 5 mg tablet 5 mg PO Q4H PRN (Reason: pain) Qty: 20 RF: 0 Continued prenat.vits,carolyn,[id number] Tablet 1 tab PO DAILY RF: 0 Discontinued esomeprazole magnesium [Nexium] 40 mg capsule,delayed release(DR/EC) 40 mg PO DAILY Qty: 30 RF: 2 Unisom (doxylamine) 25 mg tablet 25 mg PO BEDTIME PRNRF: 0 pyridoxine (vitamin B6) 25 mg tablet 25 mg PO DAILY RF: 0 ondansetron 4 mg tablet,disintegrating 4 mg PO Q6H PRN (Reason: nausea and vomiting) Qty: 20 RF: 2 amoxicillin 500 mg capsule 500 mg PO TID Qty: 21 RF: 0 oxycodone 5 mg tablet 5 mg PO Q4H PRN (Reason: pain) Qty: 14 RF: 0 Follow up/Referrals: Bernadine Kohli MD [Physician] - 2 Weeks (Follow up with Dr. Kohli on Sunday 07/15 at 1:15pm for a Telehealth appointment. Please check email for information on this. Follow up with Dr. Kohli on August 07 at 2:30pm in person at her office.) Ziggy Tomlin MD [Primary Care Provider] - Diet/Activity/Treatments Diet: Regular Diet comment: Lots of red meat and green leafy vegetables Skin/Wound/Dressing Care Report to your healthcare provider any signs of infection, such as:: chills, fever, increased pain, unusual drainage and unusual redness Dressing: Remove outer dressing on Wednesday morning Visit Report/Discharge Packet Instructions: DI for , DI for Iron Deficiency Anemia-Adult, DI for Prescription Opioid Use Stand Alone Forms: Discharge: Care Discharge Data Primary Care Provider: Ziggy Tomlin
== END 2021-06-30 18:05 | disposition home or self-care (01) | DRG 787 ==
PROVIDERS: Specialist; Admitting Provider Obstetrics & Gynecology; PCP Family Medicine; Referring Provider Obstetrics & Gynecology; Visit Provider Obstetrics & Gynecology
PROC: 10D00Z1 Extraction of Products of Conception, Low, Open Approach (ICD-10-PCS; CPT 59514; principal; 2021-06-28 06:00)
DX: O76 Abnormality in fetal heart rate and rhythm complicating labor and delivery (principal); D62 Acute posthemorrhagic anemia; O47.1 False labor at or after 37 completed weeks of gestation; O66.5 Attempted application of vacuum extractor and forceps; Z3A.38 38 weeks gestation of pregnancy; Z37.0 Single live birth; Z20.822 Contact with and (suspected) exposure to COVID-19; O69.0XX0 Labor and delivery complicated by prolapse of cord, not applicable or unspecified
CPT/HCPCS: 01967; 01968; 36415; 59025; 59050; 59510; 59514; 76815; 85014; 85018; 85025; 85027; 86850; 86900; 86901; 87635; C9803; G0379; J0330; J0690; J1756; J1885; J2274; J2590; J2704; J3010

== ENCOUNTER → 2022-04-22 07:50 | Outpatient (CLI) | payer OTHER, SELFPAY ==
--- NOTE | 2022-05-20 08:44 | PM.CARDMON.1 ---
Link Cutter Report Referral & Results Date Patient Seen: 04/22/22 Requesting provider: Cynthia Tabor Indication: Palpitations Duration of monitoring (days): 13 Diary information: There were 41 patient triggered events and 5 patient diary entries Patient triggered events were variably associated with (within 45 seconds) sinus rhythm, PVCs, PACs, and SVT Patient diary events were associated with (within 45 seconds) sinus rhythm and PVCs Data: Minimum heart rate identified was 49 beats per minute at 06:24 on 04/30/2022 Maximum sinus heart rate was 156 beats per minute at 19:06 on 04/25/2022 Maximum overall heart rate was 193 beats per minute at 20:19 on 04/29/2022 during a run of SVT Less than 1% of identified beats were ventricular or supraventricular ectopic in origin, which would classify them as rare. There were 3 runs of SVT the fastest being the 4 beat run as above rate of 193 beats per minute, the longest lasting 9 beats There were no pauses of 3 seconds or longer or episodes of atrial fibrillation identified on this study Impression: Nearly 14 day chief solution architect demonstrating very rare runs of SVT as above. Otherwise no significant dysrhythmias identified Based on patient events, patient's sense of palpitations may be due to simple PACs or PVCs. On an absolute basis PVCs were more frequent although again overall they were rare but more frequent than PACs thus suggesting a PVC as a more likely source of perceived sense of palpitations Clinical correlation suggested
== END ==
PROVIDERS: PCP Family Medicine; Referring Provider Nurse Practitioner Family; Visit Provider Nurse Practitioner Family
DX: R00.2 Palpitations (principal)
CPT/HCPCS: 93246; 93248